=== PATIENT | male | born 1970 | race Caucasian/White ===

== ENCOUNTER 2020-01-17 12:30 | Outpatient (CLI) | payer BC ==
--- NOTE | 2020-01-17 13:01 | RAD ---
XR Lumbar Spine Min 4 View HISTORY: Sciatica, right-sided,. Low back pain radiating down the right leg COMPARISON: None. FINDINGS: Multilevel degenerative changes are present. There is grade 1 anterolisthesis of L3 over L4 vertebral bodies. No compression fracture or bony destruction is seen. No pars articularis defects are present.
== END 2020-01-17 12:31 | disposition home or self-care (01) ==
LOC: BICRAD 12:30
PROVIDERS: ATTEND Chiropractor
DX: M54.31 Sciatica, right side (principal)
CPT/HCPCS: 72110

== ENCOUNTER 2020-02-14 12:38 | Outpatient (CLI) | payer BC ==
--- NOTE | 2020-02-14 13:42 | MRI ---
MRI lumbar spine noncontrast HISTORY: Low back pain. Right leg radiculopathy. FINDINGS: Conus medullaris has normal appearance. Vertebral body heights are maintained. Scattered sm all hemangiomas within the bone marrow. Mild discogenic endplate changes. T12-L1, L1-2, L2-3: Osteophytosis of the facets. Central canal and neural foramina are patent. L3-4: Minimal degenerative spondylolisthesis. Mild posterior disc bulge. Circumferential degenerative changes with fluid in the facets. Moderate to severe stenosis of the central canal. Moderate stenosis of each neural foramen. L4-5: Diffuse posterior disc bulge and focal right posterolateral inferior disc herniation, compressi ng the right L5 nerve root origin. Circumferential degenerative changes. Moderate stenosis of the central canal. Severe stenosis of the left neural foramen. L5-S1: Desiccation of the disc. Mild posterior disc bulge. Osteophytosis of the facets. Thecal sac is patent. Severe bilateral foraminal stenoses. IMPRESSION : Right posterolateral disc herniation at the L4-5 level, most greatly compressing the right L5 nerve r oot origin. Additional prominent degenerative changes of the lower lumbar spine as detailed above, including cody re central canal stenosis at the L3-4 level.
== END 2020-02-14 12:39 | disposition home or self-care (01) ==
LOC: SCSMRI 12:38
PROVIDERS: ATTEND Chiropractor
DX: M51.16 Intervertebral disc disorders with radiculopathy, lumbar region (principal); M47.816 Spondylosis without myelopathy or radiculopathy, lumbar region; M48.061 Spinal stenosis, lumbar region without neurogenic claudication
CPT/HCPCS: 72148

== ENCOUNTER 2020-06-01 08:21 | Outpatient (CLI) | payer BC ==
--- NOTE | 2020-06-01 08:47 | RAD ---
EXAM: XR Lumbar Spine Min 4 View PROVIDED CLINICAL HISTORY: Lumbar herniated nucleus pulposus, stenosis COMPARISON: 01/17/2020 FINDINGS: Again noted are 5 nonrib-bearing lumbar-type vertebral bodies with multilevel osteophytes present. Th ere is slight right convex curvature of the lumbar spine. Narrowing of L4-5 and L5-S1 intervertebral disc spaces is present. Again noted is grade 1 anterolisthesis of L3 on L4 which measu res 4.5 mm on flexion and approximately 2 mm on extension. No additional level of subluxation is seen. The vertebral body heights are within normal limits, and no fracture is visualized. IMPRESSION: 1. Multilevel degenerative changes in the lumbar spine greater in the lower lumbar spine. 2. Grade 1 anterolisthesis of L3 on the 4 with slight improvement in degree of anterolisthesis on ext ension with respect to flexion.
== END 2020-06-01 08:22 | disposition home or self-care (01) ==
LOC: BICRAD 08:21
PROVIDERS: ATTEND Neurological Surgery
DX: M48.061 Spinal stenosis, lumbar region without neurogenic claudication (principal); M51.26 Other intervertebral disc displacement, lumbar region; M47.816 Spondylosis without myelopathy or radiculopathy, lumbar region; M43.16 Spondylolisthesis, lumbar region
CPT/HCPCS: 72110

== ENCOUNTER 2022-09-10 18:23 | Inpatient (IN) | payer BC ==
[~2022-09-10 18:23] MED LIST: Iopamidol-370 76% 500 ML 1 ML ONE
[2022-09-10 19:16] LABS: #Eosinphils 0.1 thou/uL (0.0-0.7); #Lymphocytes 1.3 thou/uL (1.20-3.40); #Monocytes 1.2 thou/uL (0.11-0.59); #Neutrophils 12.5 thou/uL (1.40-6.50); %Basophils 0.1 % (0.0-1.0); %Eosinophils 0.4 % (0.0-10.0); %Lymphocytes 8.8 % (21.0-51.0); %Monocytes 8.1 % (0.0-10.0); %Neutrophils 82.6 % (42.0-75.0); Hemoglobin 16.1 g/dL (14.0-18.0); Mean Corpuscular HGB CONC 32.7 g/dL (32.0-36.0); Mean Corpuscular Hemoglobin 31.5 pg (27.0-31.0); Mean Corpuscular Volume 96.4 fl (78.0-98.0); Mean Platelet Volume 7.7 fL (7.4-10.4); Platelet Count 245 10x3/uL (130-400); RBC Distribution Width 11.8 % (11.5-14.5); Red Blood Cell (RBC) Count 5.11 mill/uL (4.70-6.10); White Blood Cell (WBC) Count 15.1 10x3/uL (4.8-10.8)
[2022-09-10] MEDS ORDERED: Morphine 4 MG/ML VIAL ONE (19:18)
[2022-09-10] MEDS ORDERED: Ondansetron PF 4 MG/2 ML Vial ONE (19:18)
[2022-09-10 19:45] LABS: ALT (SGPT) 46 U/L (8-55); AST (SGOT) 57 U/L (5-34); Albumin 4.4 g/dL (3.5-5.0); Alkaline Phosphatase 102 U/L (40-110); Anion Gap 13 mmol/L (10-20); BUN (Urea Nitrogen) 10 mg/dL (8.4-25.7); Bilirubin, Total 2.7 mg/dL (0.2-1.2); Calc. Creatinine Clearance 0 mL/min (70-130); Calcium 9.6 mg/dL (7.8-10.44); Carbon Dioxide 26 mmol/L (22-29); Chloride 101 mmol/L (98-107); Estimated GFR 81; Globulin 3.8 g/dL (2.4-3.5); Glucose 109 mg/dL (70-105); Lipase 36 U/L (8-78); Potassium 3.5 mmol/L (3.5-5.1); Protein, Total 8.2 g/dL (6.0-8.3); Sodium 136 mmol/L (136-145)
[2022-09-10 22:11] LABS: Bilirubin Negative (Negative); Blood, Urine Negative (Negative); Clarity Clear (Clear); Glucose, Urine (Dipstick) Normal (Negative); Ketone, Urine 40 mg/dL (Negative); Leukocyte Negative Leu/uL (Negative); Nitrite Negative (Negative); Protein, Urine (Dipstick) Negative (Neg-Trace); Specific Gravity, Urine 1.032 (1.002-1.036); Urobilinogen 6 mg/dL (Less than 2)
[2022-09-10] MEDS ORDERED: Piperacillin/Tazobactam 4.5 GM VIAL ONE (22:13)
[2022-09-10 23:46] VITALS: BMI 31.3
[2022-09-11] MEDS ORDERED: Ondansetron PF 4 MG/2 ML Vial IVP PRN ×2 (00:15→17:04)
[2022-09-11] MEDS ORDERED: Ondansetron ODT 4 MG TAB SL PRN (00:15)
[2022-09-11] MEDS: Sodium Chloride 0.9% 1,000 ML IV SCH ×4 (00:53→19:25)
[2022-09-11 01:02] LABS: SARS-CoV-2 NAA Rapid Test Not Detected (NotDetected)
[2022-09-11] MEDS ORDERED: Piperacillin/Tazobactam 3.375 GM in Sodium Chloride 0.9% 100 ML IVPB SCH ×2 (02:00→12:00)
[2022-09-11] MEDS ORDERED: Piperacillin/Tazobactam 3.375 GM VIAL ONE (02:06)
[2022-09-11] MEDS: Morphine 4 MG/ML VIAL SLOW IVP PRN ×2 (02:08→06:45)
[2022-09-11] MEDS ORDERED: Morphine 4 MG/ML VIAL SLOW IVP PRN ×2 (07:51→08:03)
[2022-09-11 08:37] LABS: #Neutrophils 12.6 thou/uL (1.40-6.50); %Basophils 0.2 % (0.0-1.0); %Eosinophils 0.2 % (0.0-10.0); %Lymphocytes 6.3 % (21.0-51.0); %Neutrophils 80.4 % (42.0-75.0); Hemoglobin 13.9 g/dL (14.0-18.0); Mean Corpuscular Hemoglobin 30.8 pg (27.0-31.0); Mean Corpuscular Volume 96.5 fl (78.0-98.0); Mean Platelet Volume 7.7 fL (7.4-10.4); Platelet Count 196 10x3/uL (130-400); RBC Distribution Width 11.7 % (11.5-14.5); White Blood Cell (WBC) Count 15.7 10x3/uL (4.8-10.8)
[2022-09-11 09:05] LABS: ALT (SGPT) 118 U/L (8-55); AST (SGOT) 85 U/L (5-34); Albumin 3.5 g/dL (3.5-5.0); Alkaline Phosphatase 110 U/L (40-110); Bilirubin, Direct 4.9 mg/dL (0.1-0.3); Lipase 76 U/L (8-78); Protein, Total 6.5 g/dL (6.0-8.3)
[2022-09-11] MEDS: Piperacillin/Tazobactam 3.375 GM in Sodium Chloride 0.9% 100 ML IVPB SCH ×2 (10:43→19:25)
[2022-09-11] MEDS: Pantoprazole 40 MG VIAL IVP SCH (20:46)
[2022-09-12] MEDS: Piperacillin/Tazobactam 3.375 GM in Sodium Chloride 0.9% 100 ML IVPB SCH ×4 (01:24→21:17)
[2022-09-12] MEDS: Sodium Chloride 0.9% 1,000 ML IV SCH ×4 (01:25→16:41)
[2022-09-12] MEDS ORDERED: Iopamidol 15 ML ONE (06:50)
[2022-09-12] MEDS ORDERED: Bupivacaine/Epinephrine 0.25% 30 ML VIAL ONE (06:50)
[2022-09-12] MEDS ORDERED: HYDROmorphone 0.5 MG/0.5 ML SYRINGE ONE (07:16)
[2022-09-12] MEDS ORDERED: fentaNYL PF 100 MCG/2 ML SYRINGE ONE (07:26)
[2022-09-12] MEDS ORDERED: PROPOFOL 200 MG/20 ML VIAL ONE (07:41)
[2022-09-12] MEDS ORDERED: Glycopyrrolate 0.2 MG/ML 5 ML SYRINGE ONE (07:41)
[2022-09-12] MEDS ORDERED: Ondansetron PF 4 MG/2 ML Vial ONE (07:41)
[2022-09-12] MEDS ORDERED: NEOSTIGMINE 3 MG/3 ML SYR 3 MG/3 ML SYRINGE ONE (07:41)
[2022-09-12] MEDS ORDERED: Dexamethasone 20 MG/5 ML VIAL ONE (07:41)
[2022-09-12] MEDS ORDERED: Rocuronium Bromide 10 MG/ML (10ML VIAL) ONE (07:41)
[2022-09-12] MEDS ORDERED: Calcium Carbonate 500 MG ChewTAB PO PRN (09:08)
[2022-09-12] MEDS ORDERED: Promethazine HCl 25 MG/ML VIAL IM PRN (09:08)
[2022-09-12] MEDS ORDERED: Dextrose 5% in Water 1,000 ML IV PRN (09:08)
[2022-09-12] MEDS ORDERED: Mag-Al 1200 mg/1200 mg/30 ML UDCUP PO PRN (09:08)
[2022-09-12] MEDS ORDERED: Ondansetron PF 4 MG/2 ML Vial IVP PRN (09:08)
[2022-09-12] MEDS ORDERED: hydrALAZINE 20 MG/ML VIAL SLOW IVP PRN (09:08)
[2022-09-12] MEDS ORDERED: Dextrose 50% Abboject 50 ML SYRINGE SLOW IVP PRN (09:08)
[2022-09-12] MEDS ORDERED: HYDROcodone/Acetaminophen 10/325 mg Tablet PO PRN (09:08)
[2022-09-12] MEDS ORDERED: Morphine 4 MG/ML VIAL ONE (09:14)
[2022-09-12] MEDS ORDERED: FENTANYL 50 MCG/ML 1 ML VIAL ONE ×3 (09:32→10:16)
[2022-09-12] MEDS ORDERED: Non-Formulary Medication 1 EACH PO PRN (10:18)
[2022-09-12] MEDS: Pantoprazole 40 MG VIAL IVP SCH ×2 (10:27→21:16)
[2022-09-12] MEDS ORDERED: Ondansetron HCl/PF 4 MG/2 ML Vial IVP PRN (10:30)
[2022-09-12] MEDS ORDERED: Promethazine HCl 25 MG/ML VIAL IM/IV PRN (10:30)
[2022-09-12] MEDS: Ketorolac Tromethamine 30 MG/ML VIAL IVP SCH ×2 (11:18→17:03)
[2022-09-12] MEDS: HYDROcodone/Acetaminophen 10/325 mg Tablet PO PRN ×2 (14:35→21:15)
[2022-09-12] MEDS: Famotidine 20 MG TAB PO SCH (21:14)
[2022-09-12] MEDS: Famotidine/PF 20 mg/2ml Vial SLOW IVP SCH (21:16)
[2022-09-13] MEDS: Ketorolac Tromethamine 30 MG/ML VIAL IVP SCH ×3 (00:06→11:45)
[2022-09-13] MEDS: Sodium Chloride 0.9% 1,000 ML IV SCH ×2 (02:24→10:24)
[2022-09-13] MEDS: Piperacillin/Tazobactam 3.375 GM in Sodium Chloride 0.9% 100 ML IVPB SCH ×2 (05:05→11:45)
[2022-09-13 05:43] LABS: #Lymphocytes 1.5 thou/uL (1.20-3.40); #Monocytes 0.9 thou/uL (0.11-0.59); #Neutrophils 7.8 thou/uL (1.40-6.50); %Eosinophils 0.1 % (0.0-10.0); %Lymphocytes 14.8 % (21.0-51.0); Mean Corpuscular HGB CONC 32.7 g/dL (32.0-36.0); Mean Corpuscular Hemoglobin 31.5 pg (27.0-31.0); Mean Corpuscular Volume 96.2 fl (78.0-98.0); Mean Platelet Volume 8.2 fL (7.4-10.4); Platelet Count 189 10x3/uL (130-400); RBC Distribution Width 11.7 % (11.5-14.5); Red Blood Cell (RBC) Count 4.11 mill/uL (4.70-6.10); White Blood Cell (WBC) Count 10.2 10x3/uL (4.8-10.8)
[2022-09-13] MEDS ORDERED: Enoxaparin Sodium 30 MG/0.3 ML SYRINGE SC SCH (06:00)
[2022-09-13 06:10] LABS: ALT (SGPT) 112 U/L (8-55); AST (SGOT) 60 U/L (5-34); Albumin 3.2 g/dL (3.5-5.0); Alkaline Phosphatase 94 U/L (40-110); Anion Gap 10 mmol/L (10-20); BUN (Urea Nitrogen) 16 mg/dL (8.4-25.7); Bilirubin, Total 1.7 mg/dL (0.2-1.2); Calc. Creatinine Clearance 153 mL/min (70-130); Calcium 8.6 mg/dL (7.8-10.44); Carbon Dioxide 28 mmol/L (22-29); Chloride 104 mmol/L (98-107); Estimated GFR 104; Globulin 3.1 g/dL (2.4-3.5); Glucose 115 mg/dL (70-105); Lipase 42 U/L (8-78); Potassium 3.5 mmol/L (3.5-5.1); Protein, Total 6.3 g/dL (6.0-8.3); Sodium 138 mmol/L (136-145)
[2022-09-13] MEDS: Famotidine/PF 20 mg/2ml Vial SLOW IVP SCH (08:18)
[2022-09-13] MEDS: Famotidine 20 MG TAB PO SCH (08:22)
[2022-09-13] MEDS: Pantoprazole 40 MG VIAL IVP SCH (08:22)
[2022-09-13] MEDS ORDERED: diphenhydrAMINE 50 MG CAP PO PRN (09:41)
[2022-09-13 11:51] VITALS: BP 145/93; TEMP 97.2
[2022-09-14] MEDS ORDERED: Enoxaparin Sodium 30 MG/0.3 ML SYRINGE SC SCH (09:00)
== END 2022-09-13 16:00 | disposition home or self-care (01) | DRG 419 ==
LOC: ERS 18:23 → SURG A 22:02 → OBSVTOIN 09-11 15:42
PROVIDERS: ADMIT Surgery; ATTEND Surgery
PROC: 0FT44ZZ Resection of Gallbladder, Percutaneous Endoscopic Approach (ICD-10-PCS; principal; 2022-09-12)
PROC: BF131ZZ Fluoroscopy of Gallbladder and Bile Ducts using Low Osmolar Contrast (ICD-10-PCS; 2022-09-12)
DX: K80.00 Calculus of gallbladder with acute cholecystitis without obstruction (principal); Z20.822 Contact with and (suspected) exposure to COVID-19; J45.909 Unspecified asthma, uncomplicated; Z79.899 Other long term (current) drug therapy
CPT/HCPCS: 36415; 47532; 71046; 74177; 76705; 78226; 80053; 80076; 81003; 83605; 83690; 85025; 87040; 87070; 87077; 87186; 87205; 88304; 96361; 96365; 96375; 96376; A9537; C1889; C9113; G0378; J1100; J1170; J1610; J1650; J1885; J2270; J2405; J2543; J2704; J3010; J3490; J7050; Q9967; U0002

== ENCOUNTER 2022-09-30 04:11 | Inpatient (IN) | payer BC ==
[2022-09-30] MEDS ORDERED: Levofloxacin 500 mg/D5W 100 ml Premix Bag ONE (04:35)
[2022-09-30] MEDS ORDERED: Acetaminophen 500 MG TAB ONE (04:35)
[2022-09-30] MEDS ORDERED: Albuterol Sulfate 2.5 mg/0.5 ml Neb ONE (04:51)
[2022-09-30 04:56] LABS: #Eosinphils 0.3 thou/uL (0.0-0.7); #Lymphocytes 0.9 thou/uL (1.20-3.40); #Neutrophils 8.1 thou/uL (1.40-6.50); %Basophils 0.1 % (0.0-1.0); %Eosinophils 2.7 % (0.0-10.0); %Lymphocytes 8.9 % (21.0-51.0); %Monocytes 10.1 % (0.0-10.0); %Neutrophils 78.3 % (42.0-75.0); Hemoglobin 14.6 g/dL (14.0-18.0); Mean Corpuscular HGB CONC 34.3 g/dL (32.0-36.0); Mean Corpuscular Hemoglobin 32.4 pg (27.0-31.0); Mean Corpuscular Volume 94.6 fl (78.0-98.0); Platelet Count 199 10x3/uL (130-400); RBC Distribution Width 11.6 % (11.5-14.5); Red Blood Cell (RBC) Count 4.51 mill/uL (4.70-6.10); White Blood Cell (WBC) Count 10.3 10x3/uL (4.8-10.8)
[2022-09-30 05:18] LABS: ALT (SGPT) 34 U/L (8-55); AST (SGOT) 23 U/L (5-34); Albumin 3.9 g/dL (3.5-5.0); Alkaline Phosphatase 88 U/L (40-110); Anion Gap 14 mmol/L (10-20); BUN (Urea Nitrogen) 11 mg/dL (8.4-25.7); Calc. Creatinine Clearance 0 mL/min (70-130); Carbon Dioxide 22 mmol/L (22-29); Chloride 103 mmol/L (98-107); Estimated GFR 100; Globulin 3.6 g/dL (2.4-3.5); Glucose 113 mg/dL (70-105); Potassium 3.9 mmol/L (3.5-5.1); Protein, Total 7.5 g/dL (6.0-8.3); Sodium 135 mmol/L (136-145)
[2022-09-30 05:44] LABS: SARS-CoV-2 NAA Rapid Test Not Detected (NotDetected)
[2022-09-30] MEDS ORDERED: Sodium Chloride 0.9% 1,000 ML IV SCH (06:45)
[2022-09-30 07:27] LABS: Bilirubin Negative (Negative); Blood, Urine Negative (Negative); Clarity Clear (Clear); Glucose, Urine (Dipstick) Normal (Negative); Ketone, Urine Negative (Negative); Leukocyte Negative Leu/uL (Negative); Nitrite Negative (Negative); Protein, Urine (Dipstick) Negative (Neg-Trace); Specific Gravity, Urine 1.009 (1.002-1.036); Urobilinogen Normal mg/dL (Less than 2)
[2022-09-30 08:14] LABS: Troponin I Less than 0.010 ng/mL (< 0.028)
[2022-09-30] MEDS ORDERED: Albuterol Sulfate 2.5 mg/3 ml Neb EZPAP PRN (08:39)
[2022-09-30] MEDS ORDERED: Acetaminophen 650 MG Suppository PR PRN (09:14)
[2022-09-30] MEDS ORDERED: Ondansetron PF 4 MG/2 ML Vial IVP PRN (09:14)
[2022-09-30] MEDS ORDERED: Ondansetron ODT 4 MG TAB PO PRN (09:14)
[2022-09-30] MEDS ORDERED: Benzonatate 100 MG CAP PO PRN (09:16)
[2022-09-30] MEDS ORDERED: predniSONE 20 MG TAB PO SCH (09:30)
[2022-09-30] MEDS ORDERED: Enoxaparin Sodium 40 MG/0.4 ML SYRINGE SC SCH (09:45)
[2022-09-30] MEDS ORDERED: Enoxaparin Sodium 40 MG/0.4 ML SYRINGE ONE (10:50)
[2022-09-30] MEDS ORDERED: predniSONE 20 MG TAB ONE (10:50)
[2022-09-30] MEDS ORDERED: cefTRIAXone\\ROCEPHIN 1 GM VIAL ONE (10:50)
[2022-09-30] MEDS: cefTRIAXone\\ROCEPHIN 1 GM in Sodium Chloride 0.9% 100 ML IVPB SCH (11:06)
[2022-09-30 11:34] LABS: Troponin I Less than 0.010 ng/mL (< 0.028)
[2022-09-30] MEDS: Azithromycin 500 MG in Sodium Chloride 0.9% 250 ML 250 ML IVPB SCH (13:21)
[2022-09-30] MEDS ORDERED: Azithromycin 500 MG VIAL ONE (13:22)
[2022-09-30] MEDS ORDERED: Iopamidol-370 76% 500 ML 1 ML ONE (16:03)
[2022-09-30 16:42] VITALS: BMI 31.4
[2022-09-30] MEDS: Enoxaparin Sodium 100 MG/ML SYRINGE SC SCH (19:58)
[2022-10-01 05:46] LABS: #Eosinphils 0.1 thou/uL (0.0-0.7); #Lymphocytes 1.7 thou/uL (1.20-3.40); #Monocytes 0.9 thou/uL (0.11-0.59); #Neutrophils 5.8 thou/uL (1.40-6.50); %Basophils 0.2 % (0.0-1.0); %Eosinophils 0.7 % (0.0-10.0); %Lymphocytes 20.3 % (21.0-51.0); %Monocytes 10.2 % (0.0-10.0); %Neutrophils 68.6 % (42.0-75.0); Hemoglobin 13.3 g/dL (14.0-18.0); Mean Corpuscular HGB CONC 32.6 g/dL (32.0-36.0); Mean Corpuscular Hemoglobin 31.3 pg (27.0-31.0); Mean Platelet Volume 8.1 fL (7.4-10.4); Platelet Count 194 10x3/uL (130-400); RBC Distribution Width 11.5 % (11.5-14.5); Red Blood Cell (RBC) Count 4.26 mill/uL (4.70-6.10); White Blood Cell (WBC) Count 8.4 10x3/uL (4.8-10.8)
[2022-10-01 06:04] LABS: Anion Gap 13 mmol/L (10-20); BUN (Urea Nitrogen) 9 mg/dL (8.4-25.7); Calc. Creatinine Clearance 151 mL/min (70-130); Carbon Dioxide 23 mmol/L (22-29); Chloride 106 mmol/L (98-107); Estimated GFR 104; Glucose 89 mg/dL (70-105); Potassium 3.8 mmol/L (3.5-5.1); Sodium 138 mmol/L (136-145)
[2022-10-01] MEDS ORDERED: predniSONE 20 MG TAB PO SCH (08:00)
[2022-10-01] MEDS: Enoxaparin Sodium 100 MG/ML SYRINGE SC SCH ×2 (08:04→21:26)
[2022-10-01] MEDS: Acetaminophen 325 MG TAB PO PRN (08:06)
[2022-10-01] MEDS ORDERED: Enoxaparin Sodium 40 MG/0.4 ML SYRINGE SC SCH (09:00)
[2022-10-01] MEDS: cefTRIAXone\\ROCEPHIN 1 GM in Sodium Chloride 0.9% 100 ML IVPB SCH (11:18)
[2022-10-01] MEDS: Azithromycin 500 MG in Sodium Chloride 0.9% 250 ML 250 ML IVPB SCH (11:55)
[2022-10-01] MEDS ORDERED: Polyethylene Glycol 3350 17 GM Packet PO PRN (15:42)
[2022-10-01] MEDS: Guaifenesin DM 100-10/5 ML UDCUP PO PRN (16:21)
[2022-10-02 05:31] LABS: #Eosinphils 0.1 thou/uL (0.0-0.7); #Neutrophils 3.3 thou/uL (1.40-6.50); %Basophils 0.1 % (0.0-1.0); %Lymphocytes 40.4 % (21.0-51.0); %Monocytes 13.4 % (0.0-10.0); %Neutrophils 44.1 % (42.0-75.0); Hemoglobin 13.5 g/dL (14.0-18.0); Mean Corpuscular HGB CONC 33.1 g/dL (32.0-36.0); Mean Corpuscular Hemoglobin 31.6 pg (27.0-31.0); Mean Corpuscular Volume 95.7 fl (78.0-98.0); Mean Platelet Volume 7.7 fL (7.4-10.4); Platelet Count 209 10x3/uL (130-400); RBC Distribution Width 11.5 % (11.5-14.5); Red Blood Cell (RBC) Count 4.26 mill/uL (4.70-6.10); White Blood Cell (WBC) Count 7.5 10x3/uL (4.8-10.8)
[2022-10-02 05:52] LABS: Anion Gap 12 mmol/L (10-20); BUN (Urea Nitrogen) 13 mg/dL (8.4-25.7); Calc. Creatinine Clearance 130 mL/min (70-130); Calcium 9.1 mg/dL (7.8-10.44); Carbon Dioxide 27 mmol/L (22-29); Chloride 106 mmol/L (98-107); Estimated GFR 93; Glucose 88 mg/dL (70-105); Potassium 4.2 mmol/L (3.5-5.1); Sodium 141 mmol/L (136-145)
[2022-10-02] MEDS: Enoxaparin Sodium 100 MG/ML SYRINGE SC SCH (07:33)
[2022-10-02] MEDS: Guaifenesin DM 100-10/5 ML UDCUP PO PRN ×2 (07:33→11:25)
[2022-10-02] MEDS: Apixaban 5 MG TAB PO SCH (20:10)
[2022-10-03] MEDS: Guaifenesin DM 100-10/5 ML UDCUP PO PRN ×3 (00:34→08:45)
[2022-10-03] MEDS ORDERED: Fluticasone Propionate Nasal Spray 16 gm Bottle NASAL PRN (00:46)
[2022-10-03 05:27] LABS: Anion Gap 11 mmol/L (10-20); BUN (Urea Nitrogen) 12 mg/dL (8.4-25.7); Calc. Creatinine Clearance 150 mL/min (70-130); Carbon Dioxide 26 mmol/L (22-29); Chloride 105 mmol/L (98-107); Potassium 3.6 mmol/L (3.5-5.1); Sodium 138 mmol/L (136-145)
[2022-10-03 05:28] LABS: Estimated GFR 104; Glucose 83 mg/dL (70-105)
[2022-10-03 05:36] LABS: Hemoglobin 13.7 g/dL (14.0-18.0); Mean Corpuscular HGB CONC 33.6 g/dL (32.0-36.0); Mean Corpuscular Hemoglobin 31.8 pg (27.0-31.0); Mean Corpuscular Volume 94.8 fl (78.0-98.0); Mean Platelet Volume 7.7 fL (7.4-10.4); Platelet Count 221 10x3/uL (130-400); RBC Distribution Width 11.6 % (11.5-14.5); Red Blood Cell (RBC) Count 4.29 mill/uL (4.70-6.10)
[2022-10-03 05:51] LABS: Band 3 % (5-11); Eosinophils 4 % (0-10); Lymphocytes 39 % (21-51); MDiff Complete? YES; Monocytes 14 % (0-10); Neutrophil 40 % (42-75)
[2022-10-03] MEDS: Apixaban 5 MG TAB PO SCH (08:45)
[2022-10-03] MEDS: Acetaminophen 325 MG TAB PO PRN (08:53)
[2022-10-03 11:54] VITALS: BP 117/78; TEMP 97.9
== END 2022-10-03 14:48 | disposition home or self-care (01) | DRG 871 ==
LOC: ERS 04:11 → ERHOLD 06:37 → 2SW 15:44
PROVIDERS: ADMIT Internal Medicine; ATTEND Internal Medicine
DX: A41.89 Other specified sepsis (principal); I26.94 Multiple subsegmental thrombotic pulmonary emboli without acute cor pulmonale; J96.01 Acute respiratory failure with hypoxia; J45.21 Mild intermittent asthma with (acute) exacerbation; Z20.822 Contact with and (suspected) exposure to COVID-19; J22 Unspecified acute lower respiratory infection; B97.4 Respiratory syncytial virus as the cause of diseases classified elsewhere; Z90.49 Acquired absence of other specified parts of digestive tract
CPT/HCPCS: 36415; 71045; 71275; 80048; 80053; 81003; 83605; 83880; 84145; 84484; 85025; 85379; 87040; 87086; 87633; 87798; 93005; 93306; 94640; 94760; 96374; J0456; J0696; J1650; J1956; J2405; J3490; J7050; J7512; J7611; J7620; Q9967

== ENCOUNTER 2022-11-30 13:11 | Observation (INO) | payer BC ==
[2022-11-30 14:30] LABS: ALT (SGPT) 21 U/L (8-55); AST (SGOT) 17 U/L (5-34); Alkaline Phosphatase 80 U/L (40-110); Anion Gap 13 mmol/L (10-20); BUN (Urea Nitrogen) 10 mg/dL (8.4-25.7); Bilirubin, Total 0.7 mg/dL (0.2-1.2); Calc. Creatinine Clearance 0 mL/min (70-130); Calcium 9.2 mg/dL (7.8-10.44); Carbon Dioxide 22 mmol/L (22-29); Chloride 108 mmol/L (98-107); Estimated GFR 96; Globulin 3.1 g/dL (2.4-3.5); Glucose 134 mg/dL (70-105); Lipase 39 U/L (8-78); Potassium 3.6 mmol/L (3.5-5.1); Protein, Total 7.1 g/dL (6.0-8.3); Sodium 139 mmol/L (136-145)
[2022-11-30 14:36] LABS: #Eosinphils 1.4 thou/uL (0.0-0.7); #Lymphocytes 0.7 thou/uL (1.20-3.40); #Monocytes 0.6 thou/uL (0.11-0.59); #Neutrophils 4.7 thou/uL (1.40-6.50); %Basophils 0.4 % (0.0-1.0); %Eosinophils 18.9 % (0.0-10.0); %Lymphocytes 8.8 % (21.0-51.0); %Monocytes 8.4 % (0.0-10.0); %Neutrophils 63.5 % (42.0-75.0); Hemoglobin 14.5 g/dL (14.0-18.0); Mean Corpuscular HGB CONC 33.2 g/dL (32.0-36.0); Mean Corpuscular Volume 96.4 fl (78.0-98.0); Mean Platelet Volume 8.3 fL (7.4-10.4); Platelet Count 191 10x3/uL (130-400); RBC Distribution Width 12.5 % (11.5-14.5); Red Blood Cell (RBC) Count 4.53 mill/uL (4.70-6.10); White Blood Cell (WBC) Count 7.4 10x3/uL (4.8-10.8)
[2022-11-30 15:58] LABS: Bilirubin Negative (Negative); Blood, Urine Negative (Negative); Clarity Clear (Clear); Glucose, Urine (Dipstick) Normal (Negative); Ketone, Urine Negative (Negative); Leukocyte Negative Leu/uL (Negative); Nitrite Negative (Negative); Protein, Urine (Dipstick) Negative (Neg-Trace); Specific Gravity, Urine 1.013 (1.002-1.036); Urobilinogen Normal mg/dL (Less than 2); pH, Urine 6.5 (5.0-9.0)
[2022-11-30] MEDS ORDERED: Acetaminophen 500 MG TAB ONE (18:16)
[2022-11-30] MEDS ORDERED: Ondansetron ODT 4 MG TAB PO PRN (19:52)
[2022-11-30] MEDS ORDERED: Ondansetron PF 4 MG/2 ML Vial IVP PRN (19:52)
[2022-11-30] MEDS ORDERED: HYDROcodone/Acetaminophen 5/325 mg Tablet PO PRN (19:52)
[2022-11-30] MEDS ORDERED: Acetaminophen 325 MG TAB PO PRN (19:52)
[2022-11-30] MEDS ORDERED: Sodium Chloride 0.9% 1,000 ML IV SCH (20:00)
[2022-11-30] MEDS ORDERED: Metoprolol Tartrate 5 MG/5 ML VIAL IVP SCH (20:47)
[2022-11-30 21:28] VITALS: BMI 32.7
[2022-11-30] MEDS ORDERED: Ipratropium/Albuterol 3 ML NEB NEB SCH (22:15)
[2022-12-01 00:59] LABS: SARS-CoV-2 NAA Rapid Test Not Detected (NotDetected)
[2022-12-01] MEDS ORDERED: Oseltamivir 75 MG CAP PO SCH ×2 (01:30→09:00)
[2022-12-01 05:28] LABS: Anion Gap 12 mmol/L (10-20); BUN (Urea Nitrogen) 8 mg/dL (8.4-25.7); Calc. Creatinine Clearance 168 mL/min (70-130); Calcium 8.6 mg/dL (7.8-10.44); Carbon Dioxide 21 mmol/L (22-29); Chloride 106 mmol/L (98-107); Estimated GFR 106; Glucose 104 mg/dL (70-105); Potassium 3.5 mmol/L (3.5-5.1); Sodium 135 mmol/L (136-145)
[2022-12-01 05:34] LABS: Band 10 % (5-11); Eosinophils 2 % (0-10); Hemoglobin 13.5 g/dL (14.0-18.0); Hypochromia SLIGHT = 6-15 cells (100X) (0-5/hpf); Lymphocytes 18 % (21-51); MDiff Complete? YES; Mean Corpuscular HGB CONC 33.7 g/dL (32.0-36.0); Mean Corpuscular Hemoglobin 32.4 pg (27.0-31.0); Mean Corpuscular Volume 96.2 fl (78.0-98.0); Mean Platelet Volume 7.4 fL (7.4-10.4); Monocytes 2 % (0-10); Neutrophil 68 % (42-75); Platelet Count 173 10x3/uL (130-400); Platelet Morphology Comment Appears Adequate; RBC Distribution Width 12.4 % (11.5-14.5); Red Blood Cell (RBC) Count 4.15 mill/uL (4.70-6.10); White Blood Cell (WBC) Count 5.9 10x3/uL (4.8-10.8)
[2022-12-01 12:07] VITALS: BP 119/59; TEMP 97.6
[2022-12-02] MEDS ORDERED: Metamucil PACK PO SCH (09:00)
== END 2022-12-01 12:27 | disposition home or self-care (01) ==
LOC: ERS 13:11 → ERHOLD 18:46 → 2SW 21:06
PROVIDERS: ADMIT Hospitalist; ATTEND Hospitalist
DX: K92.1 Melena (principal); J10.1 Influenza due to other identified influenza virus with other respiratory manifestations; J45.909 Unspecified asthma, uncomplicated; K44.9 Diaphragmatic hernia without obstruction or gangrene; Z86.711 Personal history of pulmonary embolism; Z79.01 Long term (current) use of anticoagulants; Z20.822 Contact with and (suspected) exposure to COVID-19
CPT/HCPCS: 36415; 71045; 71275; 80048; 80053; 81003; 83605; 83690; 84484; 85025; 93005; 94640; 96360; 96361; 96374; G0378; J7050; J7620; Q0162; Q9967

== ENCOUNTER 2023-07-05 18:02 | Emergency (ER) | payer BC | END 2023-07-05 20:45 | disposition home or self-care (01) | LOC: ERS 18:02 | DX: I82.412 Acute embolism and thrombosis of left femoral vein (principal) ==

== ENCOUNTER 2023-08-05 18:08 | Emergency (ER) | payer BC | END 2023-08-05 19:26 | disposition home or self-care (01) | LOC: ERS 18:08 | DX: I82.442 Acute embolism and thrombosis of left tibial vein (principal) ==

== ENCOUNTER 2023-08-14 19:01 | Emergency (ER) | payer BC | END 2023-08-14 20:36 | disposition left against medical advice (07) | LOC: ERS 19:01 | DX: Z53.21 Procedure and treatment not carried out due to patient leaving prior to being seen by health care provider (principal) ==